=== PATIENT | male | born 1985 | race Caucasian/White ===

== ENCOUNTER 2016-04-29 18:50 | Emergency (ER) | payer BC ==
[2016-04-29 19:08] VITALS: BP 139/79; PULSE 80; RESP 16; TEMP 98.4
[2016-04-29] MEDS ORDERED: DIPH,PERTUS(ACELL)TETVAC-LF 0.5 ML VIAL IM ONE (19:41)
--- NOTE | 2016-04-29 20:05 | ED ---
Wound/Laceration HPI - General Chief Complaint: Wound/Laceration Stated Complaint: laceration rt index finger Time Seen by Provider: 04/29/16 19:38 Source: patient Mode of arrival: ambulatory Limitations: no limitations - History of Present Illness Initial Comments: Patient is a right-handed 31-year-old male presenting to the emergency department with complaints of laceration to the palmar aspect of his right middle index finger. Onset of injury approximately one hour prior to arrival. Patient states he was washing this is when he caught himself on a piece of glass. Patient denies pain. Patient denies chills, nausea, vomiting, shortness of breath, chest pain, or abdominal pain. Patient denies numbness or tingling. Patient denies previous trauma or surgery to right hand. Patient unsure of tetanus immunization status. Patient denies treatment prior to arrival. Patient Tetanus UTD: No Context: accidental Associated Symptoms: none - Related Data Previous Rx's Medication Instructions Recorded Cephalexin [Keflex] 500 mg PO Q6HR #28 cap 04/29/16 Allergies Allergy/AdvReac Type Severity Reaction Status Date / Time shellfish derived [Shellfish] Allergy Anaphylaxis Verified 04/29/16 19:08 Review of Systems ROS Statement: Those systems with pertinent positive or pertinent negative responses have been documented in the HPI. ROS Other: All systems not noted in ROS Statement are negative. Past Medical History Past Medical History: No Reported History History of Any Multi-Drug Resistant Organisms: None Reported Past Surgical History: No Surgical Hx Reported Past Psychological History: No Psychological Hx Reported Smoking Status: Never smoker Past Alcohol Use History: Occasional Past Drug Use History: None Reported General Exam Limitations: no limitations General appearance: alert, in no apparent distress Respiratory exam: Present: normal lung sounds bilaterally. Absent: respiratory distress, wheezes, rales, rhonchi, stridor Cardiovascular Exam: Present: regular rate, normal rhythm, normal heart sounds. Absent: systolic murmur, diastolic murmur, rubs, gallop, clicks GI/Abdominal exam: Present: soft, normal bowel sounds Right Forearm Wrist exam: Present: normal inspection, full ROM Hand Wrist exam: Present: normal inspection, full ROM, laceration (A 2 cm irregular laceration to PIP joint of index finger on the lateral aspect. ) Neuro motor exam: Present: wrist extension intact, thumb opposition intact, thumb IP flexion intact, thumb adduction intact, fingers 2-5 abduction intact Neurosensory exam: Present: 2-point discrimination, radial nerve intact, ulnar nerve intact, median nerve intact Vascular: Present: normal capillary refill, radial pulse, brachial pulse, ulnar pulse. Absent: vascular compromise, pulse deficit radial art, pulse deficit ulnar art, pulse deficit brachial art Neurological exam: Present: alert, oriented X3, normal gait, other (No focal deficits). Absent: motor sensory deficit Psychiatric exam: Present: normal affect, normal mood Skin exam: Present: warm, dry, intact, normal color. Absent: rash Course Vital Signs 04/29/16 19:06 Temperature 98.4 F Pulse Rate 80 Respiratory 16 Rate Blood Pressure 139/79 O2 Sat by Pulse 98 Oximetry Procedures - Laceration Laceration #1 Consent Obtained: verbal consent Time Out Performed: No Indication: laceration Site: hand (At the PIP joint of index finger on the lateral aspect. ) Description: flap, irregular Depth: simple, single layer Anesthetic Used: lidocaine 1% Anesthesia Technique: local infiltration Amount (mls): 3 Pre-repair: wound explored, irrigated extensively, deep structures intact Type of Sutures: nylon Size of Sutures: 5-0 Number of Sutures: 6 Technique: simple, interrupted Patient Tolerated Procedure: well, no complications Medical Decision Making - Medical Decision Making Laceration at the PIP joint of index finger on the lateral aspect approximately 2 cm in circumference. Right index finger x-ray: Bony structures appear intact. No sign of foreign body. Laceration repaired. Patient tolerated well. Finger placed in splint. Patient given prescription for Keflex for prophylactic coverage. Return parameters and discharge instructions review. - Radiology Data Radiology results: report reviewed Laceration deformity at the PIP joint of index finger on the lateral aspect. Bony structures appear intact. No sign of foreign body. Disposition Clinical Impression: Laceration of index finger of right hand without complication Disposition: HOME SELF-CARE Condition: Good Instructions: Finger Laceration (ED), Care For Your Stitches (ED) Additional Instructions: Keep wound dry and clean for 24 hours, if dressing accidentally becomes wet changed immediately. May gently clean the edges of the wound daily with a cotton swab saturated with peroxide to remove crust. Please return immediately if signs of infection occur such as redness or red streaks progressing up the arm, increased pain, swelling, or fevers. Please finish prescribed antibiotics. Please return for suture removal in approximately 7 days. Follow- up with primary care physician as needed. Prescriptions: Cephalexin [Keflex] 500 mg PO Q6HR #28 cap Referrals: None,Stated [Primary Care Provider] - 1-2 days Time of Disposition: 20:52
--- NOTE | 2016-04-29 20:14 | XR ---
EXAMINATION TYPE: XR finger RT DATE OF EXAM: 04/29/2016 7:56 PM COMPARISON: NONE HISTORY: Laceration TECHNIQUE: 3 views FINDINGS: There is a laceration deformity at the PIP joint of index finger on the lateral aspect. Bon y structures appear intact. There is no sign of a foreign body. IMPRESSION: Laceration deformity. No fracture.
[2016-04-29] MEDS ORDERED: CEPHALEXIN 500 MG CAP PO STA (20:48)
== END 2016-04-29 21:07 | disposition home or self-care (01) ==
LOC: EC 18:50
DX: S61.210A Laceration without foreign body of right index finger without damage to nail, initial encounter (principal); Z91.013 Allergy to seafood; W25.XXXA Contact with sharp glass, initial encounter
CPT/HCPCS: 12001; 90471; 90715; 99283

== ENCOUNTER → 2018-05-25 | Outpatient (CLI) | payer BC, OTHER ==
[2018-05-25 12:10] LABS: Basophils # (A) 0.1 k/uL (0-0.2); Basophils % (A) 1 %; Eosinophils # (A) 0.4 k/uL (0-0.7); Eosinophils % (A) 5 %; HCT 49.7 % (39.0-53.0); HGB 16.3 gm/dL (13.0-17.5); Lymphocytes # (A) 2.9 k/uL (1.0-4.8); Lymphocytes % (A) 31 %; MCH 28.3 pg (25.0-35.0); MCHC 32.9 g/dL (31.0-37.0); MCV 86.2 fL (80.0-100.0); Mean Platelet Volume 7.8; Monocytes # (A) 0.5 k/uL (0-1.0); Monocytes % (A) 5 %; Neutrophils # (A) 5.2 k/uL (1.3-7.7); Neutrophils % (A) 56 %; Platelet Count 271 k/uL (150-450); RBC 5.77 m/uL (4.30-5.90); RDW 13.2 % (11.5-15.5); WBC 9.3 k/uL (3.8-10.6)
[2018-05-25 17:20] LABS: Albumin 4.6 g/dL (3.80-4.90); Albumin/Globulin Ratio 1.84 (1.60-3.17); Anion Gap 6.5 mmol/L (4.00-12.00); Calcium 10.2 mg/dL (8.7-10.3); Carbon Dioxide 29.5 mmol/L (21.6-31.8); Globulin 2.5 g/dL (1.6-3.3); LDL Cholesterol,Calculated 124.4 mg/dL (0.0-131.0); Potassium 4.6 mmol/L (3.5-5.5); Total Bilirubin 0.6 mg/dL (0.3-1.2); Total Protein 7.1 g/dL (6.2-8.2); VLDL Calculation 63.6 mg/dL (5.00-40.00)
== END ==
LOC: LABWHC1 11:02
PROVIDERS: ATTEND Internal Medicine
DX: Z00.00 Encounter for general adult medical examination without abnormal findings (principal); Z13.6 Encounter for screening for cardiovascular disorders
CPT/HCPCS: 36415; 80053; 80061; 84443; 85025

== ENCOUNTER 2019-01-07 17:43 | Emergency (ER) | payer BC, OTHER ==
[2019-01-07 18:06] VITALS: BP 137/76; PULSE 83; RESP 16; TEMP 98.6
--- NOTE | 2019-01-07 18:50 | ED ---
General Adult HPI - General Chief complaint: Recheck/Abnormal Lab/Rx Stated complaint: swallowed a piece of metal Time Seen by Provider: 01/07/19 18:18 Source: patient, RN notes reviewed Mode of arrival: ambulatory Limitations: no limitations - History of Present Illness Initial comments: 33-year-old male without surgical or medical history presents to the emergency department for chief complaint of possible ingested foreign body. Patient states he was drinking out of a pop can when the sharp metal opening part of the can broke off into the can and he swallowed it. States he felt some scratching in his throat for about 30 minutes but ate injuring and is no longer feeling that sensation. Denies any chest or belly pain. States this happened ap proximately 3 hours ago. States his is making him get checked out.Patient has no other complaints at this time including shortness of breath, chest pain, abdominal pain, nausea or vomiting, headache, or visual changes. - Related Data Home Medications Medication Instructions Recorded Confirmed amLODIPine [Norvasc] 5 mg PO DAILY 01/07/19 01/07/19 Allergies Allergy/AdvReac Type Severity Reaction Status Date / Time shellfish derived [Shellfish] Allergy Anaphylaxis Verified 01/07/19 18:27 Review of Systems ROS Statement: Those systems with pertinent positive or pertinent negative responses have been documented in the HPI. ROS Other: All systems not noted in ROS Statement are negative. Past Medical History Past Medical History: No Reported History History of Any Multi-Drug Resistant Organisms: None Reported Past Surgical History: No Surgical Hx Reported Past Psychological History: No Psychological Hx Reported Smoking Status: Never smoker Past Alcohol Use History: Occasional Past Drug Use History: None Reported General Exam Limitations: no limitations General appearance: alert, in no apparent distress Head exam: Present: atraumatic, normocephalic, normal inspection Eye exam: Present: normal appearance, PERRL, EOMI. Absent: scleral icterus, conjunctival injection, periorbital swelling ENT exam: Present: normal exam, normal oropharynx, mucous membranes moist Neck exam: Present: normal inspection, full ROM. Absent: tenderness, meningismus, lymphadenopathy Respiratory exam: Present: normal lung sounds bilaterally. Absent: respiratory distress, wheezes, rales, rhonchi, stridor Cardiovascular Exam: Present: regular rate, normal rhythm, normal heart sounds. Absent: systolic murmur, diastolic murmur, rubs, gallop, clicks GI/Abdominal exam: Present: soft, normal bowel sounds. Absent: distended, tenderness, guarding, rebound, rigid Neurological exam: Present: alert Course Vital Signs 01/07/19 18:04 Temperature 98.6 F Pulse Rate 83 Respiratory 16 Rate Blood Pressure 137/76 O2 Sat by Pulse 93 L Oximetry Medical Decision Making - Medical Decision Making X-ray of the chest, KUB, and soft tissue neck showed no suspicious metallic foreign body identified. Patient reevaluated, again denying any symptoms such as foreign body sensation in the throat. No pain in the chest or abdomen. Patient is able to eat and drink. At this time recommended patient follow up outpatient with primary care and to monitor himself or any symptoms. If he starts to develop any abdominal pain or chest pain whatsoever he is to return immediately to the emergency department. He does agree with this.I discussed this case with attending Dr. Cuenca who agrees with this assessment and treatment plan. Disposition Clinical Impression: Foreign body ingestion Disposition: HOME SELF-CARE Condition: Good Instructions (If sedation given, give patient instructions): Foreign Body Ingestion (ED) Additional Instructions: Please monitor herself for any symptoms such as chest pain, abdominal pain, or sensation of foreign body in the throat. If any of this occurs return immediately to the emergency department. Otherwise follow-up with primary care in 1-2 days. Is patient prescribed a controlled substance at d/c from ED?: No Referrals: Jake Britton MD [Primary Care Provider] - 1-2 days Time of Disposition: 20:13
--- NOTE | 2019-01-07 20:02 | XR ---
EXAMINATION TYPE: XR chest 2V, XR soft tissue neck, XR KUB DATE OF EXAM: 01/07/2019 COMPARISON: NONE HISTORY: Swallowing injury with pain. TECHNIQUE: Two-view soft tissue neck. Frontal and lateral views of the chest are obtained. 2 supine KUB images of the abdomen. FINDINGS: No suspicious metallic foreign body seen on 2 images of the neck. Airway is patent. No susp icious prevertebral soft tissue swelling. Region of epiglottis and vallecula within normal limits. There is no focal air space opacity, pleural effusion, or pneumothorax seen. Somewhat low lung volume s noted. Slight eventration right hemidiaphragm. No suspicious metallic foreign body in the thorax. T he cardiac silhouette size is within normal limits. The osseous structures are intact. Images of the abdomen show gas in nondistended small and large bowel loops and air-fluid level in non distended stomach. No metallic foreign body projects over the abdomen or pelvis. No pneumoperitoneum. No suspicious calcification. [id number] narrowing of both hip joints is incidentally thought p resent. IMPRESSION: No suspicious metallic foreign body identified.
== END 2019-01-07 20:31 | disposition home or self-care (01) ==
LOC: EC 17:43
DX: T18.9XXA Foreign body of alimentary tract, part unspecified, initial encounter (principal); Z91.013 Allergy to seafood; Y93.89 Activity, other specified
CPT/HCPCS: 70360; 71046; 74018; 99283

== ENCOUNTER → 2019-09-12 | Outpatient (CLI) | payer BC ==
[2019-09-12 12:56] LABS: HCT 50.4 % (39.0-53.0); HGB 16.7 gm/dL (13.0-17.5); MCHC 33.1 g/dL (31.0-37.0); MCV 87.7 fL (80.0-100.0); Mean Platelet Volume 8.2; Platelet Count 307 k/uL (150-450); RBC 5.74 m/uL (4.30-5.90); WBC 9.9 k/uL (3.8-10.6)
[2019-09-12 18:31] LABS: African American GFR (CKD) 81.4 (60.0-200.0); Albumin 4.8 g/dL (3.80-4.90); Albumin/Globulin Ratio 2.18 (1.60-3.17); Anion Gap 10.1 mmol/L (4.00-12.00); BUN/Creat Ratio 15.38 Ratio (12.00-20.00); Calcium 10.2 mg/dL (8.7-10.3); Carbon Dioxide 26.9 mmol/L (21.6-31.8); Chol/HDL Ratio 5.17; Globulin 2.2 g/dL (1.6-3.3); LDL Cholesterol,Calculated 126.2 mg/dL (0.0-131.0); Non-African American GFR(CKD) 70.2 (60.0-200.0); Potassium 4.6 mmol/L (3.5-5.5); Total Bilirubin 0.6 mg/dL (0.2-1.2); VLDL Calculation 44.8 mg/dL (5.00-40.00)
[2019-09-12 18:40] LABS: T4, Free (Free Thyroxine) 1.3 ng/dL (0.80-1.80)
== END | disposition home or self-care (01) ==
LOC: LABWHC1 12:27
PROVIDERS: ATTEND Internal Medicine
DX: Z00.00 Encounter for general adult medical examination without abnormal findings (principal); I10 Essential (primary) hypertension
CPT/HCPCS: 36415; 80053; 80061; 84439; 84443; 85027

== ENCOUNTER → 2020-01-23 | Outpatient (CLI) | payer BC ==
[2020-01-23 09:39] LABS: HCT 51.1 % (39.0-53.0); MCH 29.5 pg (25.0-35.0); MCHC 33.3 g/dL (31.0-37.0); MCV 88.7 fL (80.0-100.0); Platelet Count 253 k/uL (150-450); RBC 5.76 m/uL (4.30-5.90); RDW 12.8 % (11.5-15.5); WBC 9.1 k/uL (3.8-10.6)
[2020-01-23 15:40] LABS: African American GFR (CKD) 74.4 (60.0-200.0); Albumin 4.6 g/dL (3.80-4.90); Albumin/Globulin Ratio 2.09 (1.60-3.17); Anion Gap 8.3 mmol/L (4.00-12.00); BUN/Creat Ratio 14.29 Ratio (12.00-20.00); Calcium 9.8 mg/dL (8.7-10.3); Carbon Dioxide 25.7 mmol/L (21.6-31.8); Chol/HDL Ratio 6.71; Globulin 2.2 g/dL (1.6-3.3); LDL Cholesterol,Calculated 135.4 mg/dL (0.0-131.0); Non-African American GFR(CKD) 64.2 (60.0-200.0); Potassium 4.8 mmol/L (3.5-5.5); Total Bilirubin 0.7 mg/dL (0.3-1.2); Total Protein 6.8 g/dL (6.2-8.2); VLDL Calculation 58.6 mg/dL (5.00-40.00)
[2020-01-23 15:48] LABS: T4, Free (Free Thyroxine) 1.4 ng/dL (0.80-1.80)
== END | disposition home or self-care (01) ==
LOC: LABWHC1 09:11
PROVIDERS: ATTEND Internal Medicine
DX: Z00.00 Encounter for general adult medical examination without abnormal findings (principal); I10 Essential (primary) hypertension
CPT/HCPCS: 36415; 80053; 80061; 84439; 84443; 85027

== ENCOUNTER → 2020-01-23 | Outpatient (CLI) | payer BC ==
--- NOTE | 2020-01-23 13:18 | US ---
EXAMINATION TYPE: US abdomen complete DATE OF EXAM: 01/23/2020 COMPARISON: NONE CLINICAL HISTORY: R10.11 RUQ ABD PAIN. RUQ pain EXAM MEASUREMENTS: Liver Length: 18 cm Gallbladder Wall: .3 cm CBD: .6 cm Spleen: 11.2 cm Right Kidney: 9.9 x 4.2 x 3.9 cm Left Kidney: 11.4 x 5.5 x 4.6 cm Pancreas: Obscured by bowel gas Liver: Increased attenuation Gallbladder: No stones seen Evidence for sonographic Ball's sign: No CBD: wnl Spleen: wnl Right Kidney: wnl Left Kidney: wnl Upper IVC: wnl Abd Aorta: wnl The visualized liver is heterogeneously hyperechoic. Evaluation for focal masses suboptimal due to t he heterogeneity. Findings are most likely an basis of diffuse fatty infiltration in patient of this age. The intrahepatic portion of the IVC and visualized abdominal aorta are within normal limits. Th ere is no evidence of shadowing mobile cholelithiasis. Common bile duct is unremarkable. The visual ized portions of the pancreas are homogenous. Portions obscured by overlying bowel gas. The spleen i s unremarkable. Kidneys are symmetric and free of hydronephrosis. No renal lesions are seen on imag es saved. IMPRESSION: Suboptimal study no acute findings are evident.
== END | disposition home or self-care (01) ==
LOC: RADUSWWP 08:48
PROVIDERS: ATTEND Internal Medicine
DX: R10.11 Right upper quadrant pain (principal)
CPT/HCPCS: 76700

== ENCOUNTER 2020-12-19 16:19 | Emergency (ER) | payer BC ==
[2020-12-19] MEDS ORDERED: SODIUM CHLORIDE 0.9% 500 ML 500 ML IV STA (18:17)
[2020-12-19] MEDS ORDERED: SODIUM CHLORIDE 0.9% 1,000 ML IV STA (18:17)
[2020-12-19] MEDS ORDERED: SODIUM CHLORIDE 0.9% 50 ML IVPB ONE (19:00)
[2020-12-19] MEDS ORDERED: CASIRIVIMAB/IMDEVIMAB (EUA) 1,200 MG in SODIUM CHLORIDE 0.9% 100 ML IVPB ONE (19:00)
--- NOTE | 2020-12-19 20:37 | ED ---
SOB HPI - General Chief Complaint: Shortness of Breath Stated Complaint: COVID positive Time Seen by Provider: 12/19/20 18:17 Source: patient, RN notes reviewed Mode of arrival: ambulatory Limitations: no limitations - History of Present Illness Initial Comments: This is a 35-year-old male who was diagnosed with Coban 19 3 days ago after having symptoms for 7 days who presents today at the behest of his family physician for antibiotic treatment. He states is acting much better sometimes some shortness of breath some fevers chills no nausea no vomiting no other complaints or other symptoms no complaints of chest pain. MD Complaint: shortness of breath, cough - Related Data Home Medications Medication Instructions Recorded Confirmed amLODIPine [Norvasc] 5 mg PO DAILY 01/07/19 01/07/19 Previous Rx's Medication Instructions Recorded Azithromycin [Zithromax Z-pack (6 250 mg PO DIRECTED 5 Days #6 tab 12/19/20 tabs)] Allergies Allergy/AdvReac Type Severity Reaction Status Date / Time shellfish derived [Shellfish] Allergy Anaphylaxis Verified 12/19/20 16:40 Review of Systems ROS Statement: Those systems with pertinent positive or pertinent negative responses have been documented in the HPI. ROS Other: All systems not noted in ROS Statement are negative. Past Medical History Past Medical History: No Reported History History of Any Multi-Drug Resistant Organisms: None Reported Past Surgical History: No Surgical Hx Reported Past Psychological History: No Psychological Hx Reported Smoking Status: Never smoker Past Alcohol Use History: Occasional Past Drug Use History: None Reported General Exam - General Exam Comments Initial Comments: This is a well-developed well-nourished awake alert oriented times 3 male Limitations: no limitations General appearance: alert, in no apparent distress Head exam: Present: atraumatic, normocephalic, normal inspection Eye exam: Present: normal appearance, PERRL, EOMI. Absent: scleral icterus, conjunctival injection, periorbital swelling ENT exam: Present: normal exam, mucous membranes moist Neck exam: Present: normal inspection. Absent: tenderness, meningismus, lymphadenopathy Respiratory exam: Present: decreased breath sounds, other (Basilar crepitus right lower lobe). Absent: respiratory distress, wheezes, rales, rhonchi, stridor Cardiovascular Exam: Present: regular rate, normal rhythm, normal heart sounds. Absent: systolic murmur, diastolic murmur, rubs, gallop, clicks GI/Abdominal exam: Present: soft, normal bowel sounds. Absent: distended, tenderness, guarding, rebound, rigid Extremities exam: Present: normal inspection, full ROM, normal capillary refill. Absent: tenderness, pedal edema, joint swelling, calf tenderness Back exam: Present: normal inspection Neurological exam: Present: alert, oriented X3, CN II-XII intact Psychiatric exam: Present: normal affect, normal mood Skin exam: Present: warm, dry, intact, normal color. Absent: rash Course Vital Signs 12/19/20 12/19/20 12/19/20 16:36 18:37 19:33 Temperature 98.8 F 98.8 F 98.7 F Pulse Rate 119 H 110 H 105 H Respiratory 18 22 20 Rate Blood Pressure 147/90 138/75 173/96 O2 Sat by Pulse 94 L 95 94 L Oximetry Medical Decision Making - Medical Decision Making Patient did demonstrate some evidence of viral depletion he did receive IV fluids as well as antibody. He is feeling much improved at this time he will be discharged home. Discussed return parameters. Disposition Clinical Impression: COVID-19, Bronchitis Disposition: HOME SELF-CARE Condition: Good Instructions (If sedation given, give patient instructions): Acute Bronchitis (ED), Coronavirus Disease 2019 (COVID-19) Prescriptions: Azithromycin [Zithromax Z-pack (6 tabs)] 250 mg PO DIRECTED 5 Days #6 tab Is patient prescribed a controlled substance at d/c from ED?: No Referrals: Jake Britton MD [Primary Care Provider] - 1-2 days
[2020-12-19 21:06] VITALS: BP 166/83; PULSE 96; RESP 18; TEMP 98.2
== END 2020-12-19 20:56 | disposition home or self-care (01) ==
LOC: EC 16:19
DX: U07.1 COVID-19 (principal); J40 Bronchitis, not specified as acute or chronic
CPT/HCPCS: 99284; 96365; Q0243